=== PATIENT | female | born 1990 | race Caucasian/White ===

== ENCOUNTER 2022-04-22 20:26 | Emergency (ER) | payer OTHER ==
[~2022-04-22] VITALS: Ht 160 cm; Wt 106.6 kg
--- NOTE | 2022-04-22 22:35 | NUR ---
TO CHAIR 3. BIBS C/O HEAD PAIN S/P GLF THURSDAY 3AM , ADMITS TO ETOH AT THE TIME -KO. PT IS ALERT AND ORIENTED. RR EVEN AND NON LABORED. CONNECTED TO MONITOR. AWAITING MD QUINTANA
--- NOTE | 2022-04-22 22:37 | NUR ---
WEIVER SIGNED BY PT
[2022-04-22] MEDS ORDERED: NAPR-1164 PO (23:12)
[2022-04-22] MEDS ORDERED: KETOROLAC TROMETHAMINE INJ 30 MG/ML VIAL ONE (23:17)
[2022-04-22] MEDS ORDERED: KETOROLAC TROMETHAMINE INJ 60 MG/2 ML VIAL IM ONE (23:30)
[2022-04-23 00:32] VITALS: BP 141/84
== END 2022-04-23 00:33 | disposition home or self-care (01) ==
LOC: ER 20:35
DX: S06.0X0A Concussion without loss of consciousness, initial encounter (principal); Z79.1 Long term (current) use of non-steroidal anti-inflammatories (NSAID); W18.30XA Fall on same level, unspecified, initial encounter; Y93.89 Activity, other specified; Y92.89 Other specified places as the place of occurrence of the external cause; Y99.8 Other external cause status
CPT/HCPCS: 99284; 70450; 96372; J1885